=== PATIENT | female | born 1950 | race Caucasian/White ===

== ENCOUNTER → 2016-10-09 | Outpatient (CLI) | payer MEDICARE ==
[~2016-10-09] VITALS: Ht 170.2 cm; Wt 128.3 kg
[~2016-10-09] MED LIST: ALLO300T2 PO; CHLORHEXIDINE GLUCONATE 2 % 1 PACK (2 CLOTHS) TOPICAL PRN; FURO20TA PO; GLIP10TA6 PO; INSULIN HUMAN REGULAR 1,000 UNITS/10 ML VIAL SQ PRN; LACTATED RINGER'S 1000 ML IV PRN; LEVO75TA3 PO; LISI40TA PO; METOPROLOL TARTRATE 25 MG TAB PO PRN; MIDAZOLAM HCL 2 MG/2 ML VIAL ONE; POVIDONE IODINE 5% (ANTISEPSIS KIT) 4 APPLICATIONS EACH NARE PRN; PROPOFOL 200 MG/20 ML AMP IV ONE; SODIUM CHLORID 0.9% 500 ML IV PRN; VITA200013 PO
[2016-10-09 09:43] VITALS: BP 146/88; PULSE 80; RESP 16; TEMP 97.8; O2SAT 95
--- NOTE | 2016-10-09 11:47 | GIPROC ---
[facility] [address] [facility]. [facility], [address] EGD PROCEDURE REPORT EXAM DATE: 10/09/2016 PATIENT NAME: Camilla Moya MR #: [id number] BIRTHDATE: 1950 ATTENDING: Miller Ware MD ORDER #: [id number] DIGITAL MARKETING OFFICER: Khoa Rodríguez and Stepan Mejia STATUS: outpatient INDICATIONS: The patient is a 66 yr old female here for an EGD due to heartburn, hiatal hernia PROCEDURE PERFORMED: EGD w/ biopsy MEDICATIONS: None and Per Anesthesia. TOPICAL ANESTHETIC: none CONSENT: The patient understands the risks and benefits of the procedure and understands that these risks include, but are not limited to: sedation, allergic reaction, infection, perforation and/or bleeding. Alternative means of evaluation and treatment include, among others: physical exam, x-rays, and/or surgical intervention. The patient elects to proceed with this endoscopic procedure. medical equipment was checked for proper function. Hand hygiene and appropriate measures for infection prevention was taken. After the risks, benefits and alternatives of the procedure were thoroughly explained, Informed consent was verified, confirmed and timeout was successfully executed by the treatment team. The patient was anesthetized and the Pentax EG-[id number] endoscope was introduced through the mouth and advanced to the second portion of the duodenum. Retroflexed views revealed a hiatal hernia The gastroscope was then slowly withdrawn and removed. The endoscopy was otherwise normal. ADVERSE EVENTS: There were no complications. IMPRESSIONS: 1. Normal endoscopy otherwise 2. Retroflexed views revealed a hiatal hernia RECOMMENDATIONS: Await biopsy results. Biopsy results will not be ready for 7-10 days. If you don't hear from us in two weeks, call our office for biopsy results. PATIENT CONDITION: fair DISPOSITION: Home REPEAT EXAM: NONE Miller Ware MD eSigned: Miller Ware MD 10/09/2016 11:47 AM cc:
[2016-10-09 11:50] VITALS: TEMP 97.8
[2016-10-09 12:10] VITALS: BP 107/69; PULSE 78; RESP 18; O2SAT 97
--- NOTE | 2016-10-09 13:01 | EKG ---
Date Performed: 10/09/2016 Time Performed: 10:00:15 PTAGE: 66 years EKG: Sinus rhythm LOW QRS VOLTAGE IN PRECORDIAL LEADS BORDERLINE ECG NO PREVIOUS TRACING DOCTOR: Arturo Johnson Interpretating Date/Time 10/09/2016 13:00:16
== END ==
LOC: HEND 08:58
PROVIDERS: ATTEND Surgery
DX: R12 Heartburn (principal); K44.9 Diaphragmatic hernia without obstruction or gangrene; K29.50 Unspecified chronic gastritis without bleeding; R94.31 Abnormal electrocardiogram [ECG] [EKG]
CPT/HCPCS: 00740; 43239; 88305; 88312; 93005; J2250

== ENCOUNTER 2017-01-10 05:26 | Inpatient (IN) | payer MEDICARE ==
[~2017-01-10] VITALS: Ht 170.2 cm; Wt 131.0 kg
[~2017-01-10 05:26] MED LIST changes: -CHLORHEXIDINE GLUCONATE 2 % 1 PACK (2 CLOTHS) TOPICAL PRN; -INSULIN HUMAN REGULAR 1,000 UNITS/10 ML VIAL SQ PRN; -LACTATED RINGER'S 1000 ML IV PRN; -METOPROLOL TARTRATE 25 MG TAB PO PRN; -MIDAZOLAM HCL 2 MG/2 ML VIAL ONE; -POVIDONE IODINE 5% (ANTISEPSIS KIT) 4 APPLICATIONS EACH NARE PRN; -PROPOFOL 200 MG/20 ML AMP IV ONE; -SODIUM CHLORID 0.9% 500 ML IV PRN
[2017-01-10] MEDS ORDERED: LACTATED RINGER'S 1000 ML IV PRN (06:00)
[2017-01-10] MEDS ORDERED: METOPROLOL TARTRATE 25 MG TAB PO PRN (06:00)
[2017-01-10] MEDS ORDERED: SODIUM CHLORID 0.9% 500 ML IV PRN (06:00)
[2017-01-10] MEDS ORDERED: CHLORHEXIDINE GLUCONATE 2 % 1 PACK (2 CLOTHS) TOPICAL PRN (06:00)
[2017-01-10] MEDS ORDERED: INSULIN HUMAN REGULAR 1,000 UNITS/10 ML VIAL SQ PRN (06:00)
[2017-01-10] MEDS ORDERED: POVIDONE IODINE 5% (ANTISEPSIS KIT) 4 APPLICATIONS EACH NARE PRN (06:00)
[2017-01-10] MEDS ORDERED: ONDANSETRON HCL 4 MG/2 ML VIAL IV PUSH SCH (06:15)
[2017-01-10] MEDS ORDERED: SCOPOLAMINE 1.5 MG PATCH T-DERMAL SCH (06:15)
[2017-01-10] MEDS ORDERED: APREPITANT 40 MG CAP PO SCH (06:15)
[2017-01-10] MEDS ORDERED: ceFAZolin 2 GM PREMIX 50 ML IV SCH (06:15)
[2017-01-10] MEDS ORDERED: ACETAMINOPHEN 1000 MG/100 ML VIAL IV SCH (06:15)
[2017-01-10] MEDS ORDERED: fentaNYL CITRATE 250 MCG/5 ML AMP ONE (06:43)
[2017-01-10] MEDS: metroNIDAZOLE 500 MG INJ 100 ML IV SCH ×4 (06:53→22:24)
[2017-01-10] MEDS ORDERED: METHYLENE BLUE 10 MG/ML VIAL ONE (07:10)
[2017-01-10] MEDS ORDERED: MIDAZOLAM HCL 2 MG/2 ML VIAL ONE (07:19)
[2017-01-10] MEDS ORDERED: BUPIVACAINE/EPINEPHRINE 0.25% 50 ML VIAL ONE (07:36)
--- NOTE | 2017-01-10 09:01 | HHI.PR ---
Immediate Post Op Note Procedure Date: Jan 10, 2017 Pre Op Diagnosis: morbid obesity, htn, dm, bmi 45 Post Op Diagnosis: same Surgeon: Miller Ware MD Harvesting Supervisor(s): Dr. Bernstein Procedure: lap sleeve gastrectomy Findings: no leak on saline submersion Complications: none Specimen(s) removed: none Estimated blood loss: 5cc Anesthesia: General Drains: None Patient to: PACU Patient Condition: Good Miller Ware MD Jan 10, 2017 09:01
[2017-01-10] MEDS ORDERED: DO NOT ADM ANY ANTICOAGULANT DRUGS PRN (09:14)
[2017-01-10] MEDS ORDERED: ENALAPRILAT 1.25 MG/ML VIAL IV PUSH PRN (09:15)
[2017-01-10] MEDS ORDERED: diphenhydrAMINE HCL ELIXIR 12.5 MG/5 ML CUP PO PRN (09:15)
[2017-01-10] MEDS ORDERED: Post-op Orders (for Pharmacy) MISC OTHER ONE (09:15)
[2017-01-10] MEDS: SODIUM CHLORIDE 0.9% FLUSH 10 ML FLUSH IV FLUSH SCH ×2 (09:15→13:11)
[2017-01-10] MEDS ORDERED: diphenhydrAMINE HCL 50 MG/ML VIAL IV PRN (09:15)
[2017-01-10] MEDS ORDERED: ACETAMINOPHEN 325MG/HYDROcodone 7.5MG/15ML UDC PO PRN (09:15)
[2017-01-10] MEDS ORDERED: SODIUM CHLORIDE 0.9% FLUSH 10 ML FLUSH IV FLUSH PRN (09:15)
[2017-01-10] MEDS ORDERED: *morphine SULFATE 8 MG/ML PERIprocedure ONLY ONE ×2 (09:19→09:41)
[2017-01-10] MEDS ORDERED: *PROMETHAZINE 25 MG/ML VIAL PERIprocedural use ONLY ONE (09:26)
[2017-01-10] MEDS: METOCLOPRAMIDE HCL 10 MG/2 ML VIAL IV PUSH SCH ×3 (09:40→22:24)
[2017-01-10] MEDS ORDERED: PANTOPRAZOLE SOD 40 MG DELAYED RELEASE TAB PO SCH (09:45)
[2017-01-10] MEDS: D5-1/2 NS + KCL 20 MEQ INJ 1,000 ML IV SCH ×2 (10:05→17:13)
[2017-01-10 12:00] VITALS: BP 110/65; PULSE 85; RESP 18; TEMP 97.7; O2SAT 96
[2017-01-10] MEDS ORDERED: PROPOFOL 200 MG/20 ML AMP IV ONE (12:00)
[2017-01-10] MEDS ORDERED: ONDANSETRON HCL 4 MG/2 ML VIAL IV PUSH ONE (12:00)
[2017-01-10] MEDS ORDERED: NEOSTIGMINE 3 MG/3 ML SYR IV ONE (12:00)
[2017-01-10] MEDS ORDERED: ePHEDrine/NS 25 MG/5 ML SYR IV ONE (12:00)
[2017-01-10] MEDS ORDERED: LACTATED RINGER'S 1000 ML INJ 1,000 ML IV ONE (12:00)
[2017-01-10] MEDS: ACETAMINOPHEN 325MG/HYDROcodone 7.5MG/15ML UDC PO PRN ×2 (13:10→20:11)
[2017-01-10] MEDS: ENOXAPARIN SODIUM 40 MG/0.4 ML SYRINGE SQ SCH (13:10)
[2017-01-10] MEDS: ACETAMINOPHEN 1000 MG/100 ML 100 ML IV SCH ×3 (13:12→23:57)
[2017-01-10 15:47] VITALS: BP 92/53; PULSE 81; RESP 18; TEMP 96.4; O2SAT 95
[2017-01-10 16:13] VITALS: O2SAT 98
[2017-01-10] MEDS: HYDROmorphone HCL 2 MG TAB PO PRN (17:11)
[2017-01-10 20:00] VITALS: BP 104/59; PULSE 72; RESP 18; TEMP 96.2; O2SAT 98
[2017-01-11] VITALS: BP 95/56; PULSE 71; RESP 18; TEMP 96.3; O2SAT 97
[2017-01-11] MEDS: D5-1/2 NS + KCL 20 MEQ INJ 1,000 ML IV SCH ×2 (02:00→09:59)
[2017-01-11] MEDS: METOCLOPRAMIDE HCL 10 MG/2 ML VIAL IV PUSH SCH (03:37)
[2017-01-11] MEDS: ACETAMINOPHEN 325MG/HYDROcodone 7.5MG/15ML UDC PO PRN ×3 (03:39→16:34)
[2017-01-11 04:00] VITALS: BP 90/53; PULSE 80; RESP 18; TEMP 96.1; O2SAT 96
[2017-01-11] MEDS: ACETAMINOPHEN 1000 MG/100 ML 100 ML IV SCH (05:31)
[2017-01-11] MEDS: metroNIDAZOLE 500 MG INJ 100 ML IV SCH (06:16)
[2017-01-11 07:33] LABS: AUTOMATED NEUTROPHIL # 4.9 TH/MM3 (1.8-7.7); BASOPHIL % 0.4 % (0.0-2.0); EOSINOPHIL # 0.3 TH/MM3 (0-0.4); EOSINOPHIL % 3.8 % (0.0-4.0); HEMATOCRIT 35.5 % (35.0-46.0); HEMO FLAGS DIFF FINAL; LYMPH % 14.1 % (9.0-44.0); MEAN CELL VOLUME 89.1 FL (80.0-100.0); MEAN CORPUSCULAR HEMOGLOBIN 29.9 PG (27.0-34.0); MEAN CORPUSCULAR HGB CONC 33.5 % (32.0-36.0); MONO % 9.1 % (0.0-8.0); NEUT % 72.6 % (16.0-70.0); PLATELET COUNT 138 TH/MM3 (150-450); RED BLOOD COUNT 3.98 MIL/MM3 (4.00-5.30); RED CELL DISTRIBUTION WIDTH 15.4 % (11.6-17.2); WHITE BLOOD COUNT 6.8 TH/MM3 (4.0-11.0)
[2017-01-11] MEDS: ONDANSETRON HCL 4 MG/2 ML VIAL IV PRN ×2 (07:55→15:06)
[2017-01-11 08:00] VITALS: BP 164/51; PULSE 69; RESP 17; TEMP 95.8; O2SAT 98
[2017-01-11 08:01] LABS: BICARBONATE 25.4 MEQ/L (21.0-32.0); MAGNESIUM 2.1 MG/DL (1.5-2.5)
[2017-01-11] MEDS: SODIUM CHLORIDE 0.9% FLUSH 10 ML FLUSH IV FLUSH SCH (08:07)
[2017-01-11] MEDS ORDERED: METOCLOPRAMIDE HCL 10 MG/2 ML VIAL IV PUSH PRN (09:15)
[2017-01-11] MEDS ORDERED: PNEUMOCOCCAL POLYVALENT INJ 25 MCG/0.5 ML SYR IM ONE (10:00)
[2017-01-11 12:00] VITALS: BP 107/58; PULSE 65; RESP 16; TEMP 95.1; O2SAT 97
--- NOTE | 2017-01-11 12:24 | HHI.PR ---
Subjective Subjective Notes Sitting up in bed No GI complaints Tolerating PO fluids Objective Vitals/I&O Vital Signs Date Time Temp Pulse Resp B/P (MAP) Pulse Ox O2 Delivery O2 Flow Rate FiO2 01/11/17 12:00 95.1 65 16 107/58 (74) 97 01/10/17 11:15 Nasal Cannula 2 Labs Laboratory Tests Test 01/11/17 06:39 White Blood Count 6.8 Red Blood Count 3.98 Hemoglobin 11.9 Hematocrit 35.5 Mean Corpuscular Volume 89.1 Mean Corpuscular Hemoglobin 29.9 Mean Corpuscular Hemoglobin Concent 33.5 Red Cell Distribution Width 15.4 Platelet Count 138 Mean Platelet Volume 8.2 Neutrophils (%) (Auto) 72.6 Lymphocytes (%) (Auto) 14.1 Monocytes (%) (Auto) 9.1 Eosinophils (%) (Auto) 3.8 Basophils (%) (Auto) 0.4 Neutrophils # (Auto) 4.9 Lymphocytes # (Auto) 1.0 Monocytes # (Auto) 0.6 Eosinophils # (Auto) 0.3 Basophils # (Auto) 0.0 CBC Comment DIFF FINAL Differential Comment Blood Urea Nitrogen 39 Creatinine 1.23 Random Glucose 124 Calcium Level 8.1 Magnesium Level 2.1 Sodium Level 138 Potassium Level 4.0 Chloride Level 105 Carbon Dioxide Level 25.4 Anion Gap 8 Estimat Glomerular Filtration Rate 44 Cardiovascular: Regular Lungs: Clear Abdomen: Post-op tenderness Extremities: Perfused Wound Wound : Wound Location: Abdomen Appearance: Clean & Dry A/P Assessment and Plan 66yo F POD#1 Laparoscopic VSG -Continue with frequent ambulation -Continue to increase fluids as tolerated Discharge Planning D/C home either later today or tomorrow Attending Statement Patient seen and examined at bedside discussed the importance of hydration doing well Attestation The exam, history, and the medical decision-making described in the above note were completed with the assistance of the mid-level provider. I reviewed and agree with the findings presented. I attest that I had a [id number] encounter with the patient on the same day, and personally performed and documented my assessment and findings in the medical record. Hema Tapia Jan 11, 2017 12:24 Miller Ware MD Jan 21, 2017 22:43
[2017-01-11] MEDS: ENOXAPARIN SODIUM 40 MG/0.4 ML SYRINGE SQ SCH (12:57)
[2017-01-11] MEDS: HYDROmorphone HCL 2 MG TAB PO PRN (15:07)
[2017-01-11 16:00] VITALS: BP 109/61; PULSE 72; RESP 16; TEMP 96.3; O2SAT 97
--- NOTE | 2017-01-12 21:47 | MP ---
cc: ZOIE WARE MD DATE OF SURGERY 01/10/17 PREOPERATIVE DIAGNOSIS Morbid obesity, BMI of 45, hypertension, diabetes, gout POSTOPERATIVE DIAGNOSIS Morbid obesity, BMI of 45, hypertension, diabetes, gout PROCEDURE PERFORMED Laparoscopic sleeve gastrectomy. SURGEON Dr. Peace Ware CONSERVATION PLANNER Dr. Chantal Bernstein needed due to the complexity of the laparoscopic case. Dr. Bernstein assisted with camera control and retraction. PROCEDURE Laparoscopic sleeve gastrectomy. ANESTHESIA GETA. IV FLUIDS See anesthesia sheet ESTIMATED BLOOD LOSS 5 mL. DRAINS None COMPLICATIONS None SPECIMENS None. WOUND CLASSIFICATION Clean contaminated FINDINGS No leak on methylene blue INDICATION The patient is a 66-year-old female who presents with morbid obesity, BMI of 45, multiple medical issues, multiple attempts at weight loss without success. Therefore, decision was made for operative intervention including a laparoscopic sleeve gastrectomy. The patient underwent preoperative evaluation. PROCEDURE IN DETAIL The patient was taken to the operating suite, placed in supine position. She was prepped and draped in usual sterile fashion after induction of general endotracheal anesthesia. Brief time-out done stating correct patient, procedure and surgical site and all were in agreement. Attention first directed to a point 15 cm distal to the xiphoid. Local anesthetic injected. Skin incision made. Midline 5 mm port was placed under direct visualization without the port. Pneumoperitoneum obtained to 15 mm. Several other ports placed, one right upper quadrant liver retractor port emma flex. Next, a 15 mm right lower quadrant port was placed followed by two 5 mm left lower and left lateral port placement. The patient placed in reverse Trendelenburg and airplaned to the right. The emma flex was affixed in place to retract the left lobe of the liver. The greater curvature of the stomach was taken down with the harmonic scalpel 5 cm from the pylorus, carried up to the angle of his. Posterior ligament attachments also taken down. Prior to port insertion, there were noted to be several adhesions from previous incisional scar to the right lower quadrant. This were necessary to be mobilized prior to commencement of procedure. Once we were content with our dissection up to the angle of his, a 36-[place] Visigi port was placed at the beginning of the case and placed at suction. Division of the stomach was done, started approximately 4-5 cm proximal to the pylorus and carried all the way up to the angle of his. Bougie 36-[place] Visigi was used as a calibration device. 80% of the stomach was removed. This was done with an Endo-TK echelon flex stapler. This was a black load followed by subsequent green and gold loads. Raheel were reinforced with seam guard. A small distance of 2 cm was left from the ge junction and guaranteed avoidance of any esophageal entry. There was a distance of 1 cm from the GE junction to the staple line. Bougie was then instilled with methylene blue without evidence of leaking. The greater curve mesentery was then sutured with a 2-0 V-lock suture to the staple line. All hemostasis was obtained. Evoseal was placed at the suture line. Stomach was removed from the peritoneal cavity through the 15 mm port site. Fascia to the port site was closed with 0 Vicryl. pneumoperitoneum was removed. All ports were removed. The 5 mm and 15 mm subcuticular sutures were placed with 4-0 Monocryl. Sterile dressings including Benzoin and Steri-Strips were placed. The patient tolerated procedure well with no operative complications. All lap and instrument counts were correct at the end of the procedure. The patient was extubated and taken to the PACU. MD MILVIA Odom/ /8:21 PM /9:30 PM ANA
== END 2017-01-11 17:57 | disposition home or self-care (01) | DRG 621 ==
LOC: HSDI 05:26 → N07A 11:34
PROVIDERS: ADMIT Surgery; ATTEND Surgery
PROC: 0DB64Z3 Excision of Stomach, Percutaneous Endoscopic Approach, Vertical (ICD-10-PCS; principal; 2017-01-10 07:21)
DX: E66.01 Morbid (severe) obesity due to excess calories (principal); I10 Essential (primary) hypertension; Z68.42 Body mass index [BMI] 45.0-49.9, adult; E11.9 Type 2 diabetes mellitus without complications; M10.9 Gout, unspecified; K57.90 Diverticulosis of intestine, part unspecified, without perforation or abscess without bleeding; K21.9 Gastro-esophageal reflux disease without esophagitis; E03.9 Hypothyroidism, unspecified; Z23 Encounter for immunization
CPT/HCPCS: 80048; 82948; 83735; 85025; 90732; 94150; J0131; J0690; J1650; J2250; J2270; J2405; J2550; J2710; J2765; J3010; J3480; J7120; J8501